=== PATIENT | female | born 1960 | race Caucasian/White ===

== ENCOUNTER 2022-04-08 06:17 | Day surgery (SDC) | payer OTHER, SELFPAY ==
[2022-04-08 06:34] VITALS: BMI 21.1
[2022-04-08 06:38] VITALS: BP 148/90; PULSE 89; RESP 16; TEMP 36.7; O2SAT 100
[2022-04-08] MEDS: Lactated Ringers 1,000 ML 50 ML IVCONT (07:01)
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
--- NOTE | 2022-04-08 07:29 | MHC.SHP ---
Pre-Procedural Eval Section A Date of Service: 04/08/22 Section B Chief Complaint: screening Details of Present Illness: see H&P no changes Relevant Family History (Specify if Yes): No Relevant Social History: None Medical History: No relevant PMH Allergies: Allergies Allergy/AdvReac Type Severity Reaction Status Date / Time morphine Allergy Mild Nausea and Verified 04/08/22 06:29 Vomiting Review of Systems Sugical H&P ROS: Negative: Constitution, Cardiovascular, Respiratory, Neurological, Psychiatric, Hem-Onc, Allergic/Immunologic, Gastrointestinal, Genitourinary, Musculoskeletal, Integumentary, Endocrine and Eyes/Ears/Nose/Throat Exam Surgical H&P Exam: Normal: HEENT, Normal: Heart, Normal: Lungs, Normal: Extremities, Normal: Abdomen, Normal: Skin and Normal: Neurological Plan Diagnosis/Plan: Unchanged I have reviewed the history and physical and performed a pertinent physical examination on my patient. No changes have occurred unless specified. Time Spent With Patient Time: Total time managing care of this patient today ____ minutes.
--- NOTE | 2022-04-08 07:55 | PM.OP ---
Brief Operative Note Date of Service: 04/08/22 Pre-op diagnosis: screening Post-op diagnosis: same Procedure: colonoscopy Surgeon: Valerio Umaña Anesthesia: MAC Was an Military Technician used for this Procedure?: No Estimated blood loss (mL): 5 Pathology: other Condition: stable Disposition: PACU
[2022-04-08 07:58] VITALS: BP 104/60; PULSE 83; RESP 20; TEMP 36.1; O2SAT 99
[2022-04-08 08:14] VITALS: BP 121/63; PULSE 62; RESP 16; TEMP 36.1; O2SAT 99
--- NOTE | 2022-04-08 08:53 | OP_ITS ---
SURGEON: Valerio Umaña MD INDICATIONS: Colon cancer screening and prior history of adenomatous colon polyps. PREOPERATIVE DIAGNOSIS: POSTOPERATIVE DIAGNOSIS: PROCEDURE PERFORMED: Colonoscopy to the terminal ileum with biopsy. ESTIMATED BLOOD LOSS: COMPLICATIONS: ANESTHESIA: Monitored anesthesia care. ASSISTANTS: SPECIMENS: DESCRIPTION OF PROCEDURE: A history and physical was performed. The risks and benefits of the procedure were explained to the patient, and informed consent was obtained. The procedure was performed on 04/08/2022. A digital rectal exam was performed and was found to be normal. The Olympus pediatric video colonoscope was introduced into the rectum and advanced to the cecum without difficulty. The cecum was identified by translumination, palpation, and identification of the ileocecal valve. Examination was performed. The scope was removed. She tolerated the procedure well and was returned to the recovery area in stable condition. FINDINGS: The terminal ileum was examined and appeared normal. The visualized colonic mucosa was normal. The quality of the prep was good. In the cecum were 2, less than 5 mm sessile polyps, which were removed using biopsy forceps. No other polyps were identified. Retroflexed examination showed small internal hemorrhoids. IMPRESSION: Colon polyps. RECOMMENDATIONS: Follow up the biopsy results. MD JULIO C Lassiter/TONIE / [id number]
== END 2022-04-08 09:07 | disposition home or self-care (01) ==
PROVIDERS: PCP Internal Medicine; Visit Provider Internal Medicine Gastroenterology
PROC: 0DJD8ZZ Inspection of Lower Intestinal Tract, Via Natural or Artificial Opening Endoscopic (ICD-10-PCS; CPT 45378; principal; 2022-04-08 07:30)
DX: Z12.11 Encounter for screening for malignant neoplasm of colon (principal); Z86.010 Personal history of colon polyps; D12.0 Benign neoplasm of cecum; K64.8 Other hemorrhoids; H91.90 Unspecified hearing loss, unspecified ear; H40.9 Unspecified glaucoma; Z97.0 Presence of artificial eye; Z85.3 Personal history of malignant neoplasm of breast; Z90.13 Acquired absence of bilateral breasts and nipples; N20.0 Calculus of kidney; Z79.82 Long term (current) use of aspirin; Z79.899 Other long term (current) drug therapy
CPT/HCPCS: 45380; 88305